=== PATIENT | female | born 1975 | race Caucasian/White ===

== ENCOUNTER 2019-06-30 14:14 | Inpatient (IN) ==
[~2019-06-30 14:14] MED LIST: Total Joint Mixture (50 ml) IR ONE
[2019-06-30] MEDS ORDERED: CeFAZolin Syr 2,000MG/20 ML 2,000 MG/20 ML SYRINGE IVPB ONE (14:29)
[2019-06-30] MEDS ORDERED: Ringers Solution, Lactated 1,000 ML IVC SCH ×2 (14:30→21:05)
[2019-06-30] MEDS ORDERED: *HR* Labetalol 20 MG/4 ML SYRINGE IVP PRN (14:37)
[2019-06-30] MEDS ORDERED: *HR* HYDROmorphone 2 MG/ML SYRINGE IVP PRN (14:37)
[2019-06-30] MEDS ORDERED: *HR* Promethazine 25 MG/ML VIAL IVP PRN ×2 (14:37→21:05)
[2019-06-30] MEDS ORDERED: Scopolamine Patch 1.5 MG PATCH.TD72 TD ONE (14:37)
[2019-06-30] MEDS ORDERED: Naloxone 0.4 MG/ML INJ IVP PRN ×2 (14:37→21:05)
[2019-06-30] MEDS ORDERED: Gabapentin 300 MG CAPSULE PO ONE (14:37)
[2019-06-30] MEDS ORDERED: Acetaminophen IV 1,000 MG/100 ML INFUS..BTL IVPB ONE (14:37)
[2019-06-30] MEDS ORDERED: Ondansetron 4 MG/2 ML VIAL IVP ONE (14:37)
[2019-06-30 15:20] LABS: Hematocrit 34.7 % (35.3-44.9); Hemoglobin 11.7 g/dL (11.5-15.4)
[2019-06-30] MEDS ORDERED: Ethanol\\Acetic Acid\\Na Ace\\Ben 1,000 ML IRRIG.SOLN IR ONE ×3 (15:23→18:02)
[2019-06-30] MEDS ORDERED: *HR* Midazolam HCl 2 MG/2 ML VIAL ONE (16:15)
[2019-06-30] MEDS ORDERED: *HR* FentaNYL (PF) 100 MCG/2 ML VIAL ONE (16:15)
[2019-06-30] MEDS ORDERED: *HR* Propofol 200 MG/20 ML VIAL IVP ONE (16:16)
[2019-06-30] MEDS ORDERED: Dexamethasone 4 MG/ML VIAL ONE (16:17)
[2019-06-30] MEDS ORDERED: Lidocaine -MPF 2% 2 ML VIAL ONE (16:17)
[2019-06-30] MEDS ORDERED: *HR* Succinylcholine 200 MG/10 ML VIAL IVP ONE (16:17)
[2019-06-30] MEDS ORDERED: *HR* Rocuronium Bromide 50 MG/5 ML VIAL ONE (16:17)
[2019-06-30] MEDS ORDERED: Ondansetron 4 MG/2 ML VIAL ONE (16:17)
[2019-06-30] MEDS ORDERED: Ropivacaine/PF 0.5% 30 ML VIAL ONE (17:45)
[2019-06-30] MEDS ORDERED: *HR* Enoxaparin 30 MG/0.3 ML SYRINGE SQ SCH (18:00)
[2019-06-30] MEDS ORDERED: *HR* HYDROMORPHONE 2 MG/ML VIAL ONE (18:45)
[2019-06-30] MEDS ORDERED: EPHEDrine 50 MG/ML VIAL ONE (18:57)
[2019-06-30] MEDS ORDERED: *HR* PHENYLEPHRINE 1,000 MCG/10 ML SYRINGE IVP ONE (19:02)
[2019-06-30 21:03] LABS: Hematocrit 33.9 % (35.3-44.9); Hemoglobin 11.3 g/dL (11.5-15.4)
[2019-06-30] MEDS ORDERED: MOM Conc 10 ML UD.LIQ PO PRN (21:05)
[2019-06-30] MEDS ORDERED: Temazepam 15 MG CAPSULE PO PRN (21:05)
[2019-06-30] MEDS ORDERED: Ondansetron 4 MG/2 ML VIAL IVP PRN (21:05)
[2019-06-30] MEDS ORDERED: Sennosides 8.6 MG TABLET PO PRN (21:05)
[2019-06-30] MEDS: *HR* HYDROcodone/Acet 10/325 mg TABLET PO PRN (21:59)
[2019-06-30] MEDS: tiZANidine 4 MG TABLET PO SCH (21:59)
[2019-07-01] MEDS: HYDROcodone BIT/Homatropine 5 MG TABLET PO PRN (00:05)
[2019-07-01 02:34] LABS: Basophils % 0.2 %; Hemoglobin 10.1 g/dL (11.5-15.4); Immature Granulocytes % 0.5 % (0-4); Lymphocytes # 0.5 K/mcL (0.6-4.6); Lymphocytes % 3.6 %; Mean Corpuscular HGB Conc 31.6 g/dL (31.6-35.5); Mean Corpuscular Hemoglobin 32.5 pg (28.0-33.3); Mean Corpuscular Volume 102.9 fL (83.0-100.0); Mean Platelet Volume 11.8 fL (9.4-12.4); Monocytes # 0.2 K/mcL (0.0-1.3); Neutrophils # 13.9 K/mcL (1.6-8.9); Platelet Count 178 K/mcL (140-400); Red Blood Count 3.11 M/mcL (3.82-4.97); Red Cell Distribution Width 12.9 % (11.5-14.5); Segmented Neutrophils % 94.7 %; White Blood Count 14.7 K/mcL (4.3-11.1)
[2019-07-01 02:56] LABS: BUN/Creatinine Ratio 24 (6-26); Blood Urea Nitrogen 16 mg/dL (6-20); Carbon Dioxide 26 mEq/L (23-29); Chloride 103 mEq/L (98-107); Glucose 161 mg/dL (70-105); Osmolality,Calculated 293 (280-300); Potassium 3.8 mEq/L (3.5-5.1); Sodium 139 mEq/L (136-145); eGFR For African Americans > 60 (> 60); eGFR For Non-African Americans > 60 (> 60)
[2019-07-01] MEDS: *HR* Enoxaparin 30 MG/0.3 ML SYRINGE SQ SCH ×2 (06:25→18:10)
[2019-07-01] MEDS: Nitrofurantoin (BID) 100 MG CAPSULE PO SCH (07:59)
[2019-07-01] MEDS: Ascorbic Acid 500 MG TABLET PO SCH ×2 (07:59→16:40)
[2019-07-01] MEDS: Aspirin Enteric Coated 81 MG Tablet PO SCH (08:00)
[2019-07-01] MEDS: Multivit/Ca/Min/Fe/FA 1 TAB TABLET PO SCH (08:01)
[2019-07-01] MEDS: tiZANidine 4 MG TABLET PO SCH (19:50)
[2019-07-01] MEDS: *HR* HYDROcodone/Acet 10/325 mg TABLET PO PRN (19:50)
[2019-07-02 03:23] LABS: Basophils % 0.2 %; Eosinophils % 0.3 %; Hematocrit 26.5 % (35.3-44.9); Immature Granulocytes % 0.2 % (0-4); Lymphocytes # 1.7 K/mcL (0.6-4.6); Lymphocytes % 17.3 %; Mean Corpuscular HGB Conc 31.3 g/dL (31.6-35.5); Mean Corpuscular Hemoglobin 32.4 pg (28.0-33.3); Mean Corpuscular Volume 103.5 fL (83.0-100.0); Mean Platelet Volume 11.6 fL (9.4-12.4); Monocytes # 0.6 K/mcL (0.0-1.3); Monocytes % 6.5 %; Neutrophils # 7.2 K/mcL (1.6-8.9); Platelet Count 154 K/mcL (140-400); Red Blood Count 2.56 M/mcL (3.82-4.97); Segmented Neutrophils % 75.5 %; White Blood Count 9.5 K/mcL (4.3-11.1)
[2019-07-02 03:25] LABS: Hemoglobin 8.3 g/dL (11.5-15.4)
[2019-07-02 03:41] LABS: BUN/Creatinine Ratio 25 (6-26); Blood Urea Nitrogen 20 mg/dL (6-20); Calcium 8.6 mg/dL (8.6-10.3); Carbon Dioxide 27 mEq/L (23-29); Chloride 106 mEq/L (98-107); Glucose 137 mg/dL (70-105); Osmolality,Calculated 297 (280-300); Potassium 3.6 mEq/L (3.5-5.1); Sodium 141 mEq/L (136-145); eGFR For African Americans > 60 (> 60); eGFR For Non-African Americans > 60 (> 60)
[2019-07-02] MEDS: *HR* Enoxaparin 30 MG/0.3 ML SYRINGE SQ SCH (05:09)
[2019-07-02] MEDS: *HR* HYDROcodone/Acet 10/325 mg TABLET PO PRN ×2 (05:11→11:26)
[2019-07-02] MEDS: Ascorbic Acid 500 MG TABLET PO SCH (08:54)
[2019-07-02] MEDS: Aspirin Enteric Coated 81 MG Tablet PO SCH (08:55)
[2019-07-02] MEDS: Multivit/Ca/Min/Fe/FA 1 TAB TABLET PO SCH (08:55)
[2019-07-02] MEDS: Nitrofurantoin (BID) 100 MG CAPSULE PO SCH (08:55)
[2019-07-02 11:59] VITALS: BP 124/77
[2019-07-02] MEDS: HYDROcodone BIT/Homatropine 5 MG TABLET PO PRN (15:16)
== END 2019-07-02 15:23 | disposition home health service (06) | DRG 467 ==
LOC: SAMDAY 14:14 → 3NENU 20:43
PROVIDERS: ADMIT Orthopaedic Surgery; ATTEND Orthopaedic Surgery

== ENCOUNTER 2020-03-15 11:06 | Inpatient (IN) ==
[~2020-03-15 11:06] MED LIST changes: +Acetaminophen IV 1,000 MG/100 ML INFUS..BTL IVPB ONE; +Celecoxib 100 MG CAPSULE PO ONE; +Famotidine 20 MG/2 ML VIAL IVP ONE; +Total Joint Mixture (50 ml) INTRAART ONE; -Total Joint Mixture (50 ml) IR ONE
[2020-03-15] MEDS ORDERED: CeFAZolin Syr 2,000MG/20 ML 2,000 MG/20 ML SYRINGE IVPB ONE (11:26)
[2020-03-15] MEDS ORDERED: Ropivacaine/PF 0.5% 30 ML VIAL ONE (11:26)
[2020-03-15] MEDS ORDERED: *HR* Midazolam HCl 2 MG/2 ML VIAL ONE (11:27)
[2020-03-15] MEDS ORDERED: *HR* FentaNYL (PF) 100 MCG/2 ML VIAL ONE (11:27)
[2020-03-15] MEDS ORDERED: Ringers Solution, Lactated 1,000 ML IVC SCH ×2 (11:30→14:55)
[2020-03-15] MEDS ORDERED: Ondansetron 4 MG/2 ML VIAL IVP ONE (11:30)
[2020-03-15] MEDS ORDERED: Vancomycin 1,000 MG VIAL ONE (11:44)
[2020-03-15] MEDS ORDERED: Ethanol\\Acetic Acid\\Na Ace\\Ben 1,000 ML IRRIG.SOLN IR ONE (11:45)
[2020-03-15] MEDS ORDERED: EPHEDrine 50 MG/ML VIAL ONE (11:55)
[2020-03-15] MEDS ORDERED: Lidocaine -MPF 2% 2 ML VIAL ONE (11:57)
[2020-03-15] MEDS ORDERED: Tranexamic Acid 1,000 MG/10 ML VIAL ONE (12:13)
[2020-03-15] MEDS ORDERED: *HR* Propofol 200 MG/20 ML VIAL IVP ONE ×3 (12:55→13:29)
[2020-03-15 14:32] LABS: Hematocrit 37.8 % (35.3-44.9)
[2020-03-15] MEDS ORDERED: diazePAM 5 MG TABLET PO ONE (14:55)
[2020-03-15] MEDS ORDERED: MOM Conc 10 ML UD.LIQ PO PRN (14:55)
[2020-03-15] MEDS ORDERED: D5% in Water 1,000 ML IVC PRN (14:55)
[2020-03-15] MEDS ORDERED: *HR* Promethazine 25 MG/ML VIAL IVP PRN (14:55)
[2020-03-15] MEDS ORDERED: Naloxone 0.4 MG/ML INJ IVP PRN (14:55)
[2020-03-15] MEDS ORDERED: Ondansetron 4 MG/2 ML VIAL IVP PRN (14:55)
[2020-03-15] MEDS ORDERED: Dextrose Gel 15 GM/37.5 ML TUBE PO PRN ×2 (14:55)
[2020-03-15] MEDS ORDERED: Sennosides 8.6 MG TABLET PO PRN (14:55)
[2020-03-15] MEDS ORDERED: *HR* HYDROcodone/Acet 10/325 mg TABLET PO PRN (14:55)
[2020-03-15] MEDS ORDERED: *HR* Dextrose 50 % in Water (Vial) 50 ML VIAL IVP PRN (14:55)
[2020-03-15] MEDS: Insulin LISPRO 300 UNITS/3 ML VIAL SQ SCH ×2 (17:22→17:23)
[2020-03-15] MEDS: Ascorbic Acid 500 MG TABLET PO SCH (17:26)
[2020-03-15] MEDS: *HR* Enoxaparin 30 MG/0.3 ML SYRINGE SQ SCH (17:28)
[2020-03-15] MEDS ORDERED: *HR* Enoxaparin 30 MG/0.3 ML SYRINGE SQ SCH (18:00)
[2020-03-15] MEDS: CeFAZolin 2 GM/120 ML BAG IVPB SCH (19:25)
[2020-03-15] MEDS ORDERED: tiZANidine 4 MG TABLET PO SCH (21:00)
[2020-03-15] MEDS ORDERED: Insulin LISPRO 300 UNITS/3 ML VIAL SQ SCH (21:00)
[2020-03-15] MEDS: HYDROcodone BIT/Homatropine 5 MG TABLET PO PRN (22:18)
[2020-03-16] MEDS: CeFAZolin 2 GM/120 ML BAG IVPB SCH (03:00)
[2020-03-16] MEDS: *HR* Enoxaparin 30 MG/0.3 ML SYRINGE SQ SCH (04:59)
[2020-03-16 07:06] LABS: Basophils % 0.1 %; Hematocrit 30.7 % (35.3-44.9); Immature Granulocytes % 0.5 % (0-4); Lymphocytes # 0.8 K/mcL (0.6-4.6); Lymphocytes % 5.8 %; Mean Corpuscular HGB Conc 32.6 g/dL (31.6-35.5); Mean Corpuscular Hemoglobin 31.3 pg (28.0-33.3); Mean Corpuscular Volume 95.9 fL (83.0-100.0); Mean Platelet Volume 11.5 fL (9.4-12.4); Monocytes # 0.4 K/mcL (0.0-1.3); Monocytes % 3.1 %; Platelet Count 184 K/mcL (140-400); Red Cell Distribution Width 12.3 % (11.5-14.5); Segmented Neutrophils % 90.5 %; White Blood Count 13.2 K/mcL (4.3-11.1)
[2020-03-16 07:27] LABS: BUN/Creatinine Ratio 30 (6-26); Blood Urea Nitrogen 19 mg/dL (6-20); Calcium 9.6 mg/dL (8.6-10.3); Carbon Dioxide 28 mEq/L (23-29); Chloride 107 mEq/L (98-107); Glucose 134 mg/dL (70-105); Osmolality,Calculated 296 (280-300); Potassium 4.4 mEq/L (3.5-5.1); Sodium 141 mEq/L (136-145); eGFR For African Americans > 60 (> 60); eGFR For Non-African Americans > 60 (> 60)
[2020-03-16] MEDS: Ascorbic Acid 500 MG TABLET PO SCH (08:26)
[2020-03-16] MEDS: Insulin LISPRO 300 UNITS/3 ML VIAL SQ SCH ×2 (08:27→12:23)
[2020-03-16] MEDS ORDERED: Magnesium Oxide 400 MG TABLET PO SCH (09:00)
[2020-03-16] MEDS ORDERED: Multivit/Ca/Min/Fe/FA 1 TAB TABLET PO SCH ×2 (09:00)
[2020-03-16] MEDS: HYDROcodone BIT/Homatropine 5 MG TABLET PO PRN (10:37)
[2020-03-16 11:30] VITALS: BP 112/72
== END 2020-03-16 13:07 | disposition home or self-care (01) | DRG 468 ==
LOC: SAMDAY 11:06 → 3NENU 14:55
PROVIDERS: ADMIT Orthopaedic Surgery; ATTEND Orthopaedic Surgery